=== PATIENT | female | born 1940 | race Caucasian/White ===

== ENCOUNTER → 2019-07-20 09:32 | Outpatient (CLI) | payer OTHER ==
[~2019-07-20 09:32] MED LIST: ATENOLOL25 MG PO; LISINOPRIL40 MG PO; NORVASC5 MG PO
== END | disposition home or self-care (01) ==
LOC: LAB 09:32
DX: D64.89 Other specified anemias (principal); E88.89 Other specified metabolic disorders; D68.8 Other specified coagulation defects; N39.0 Urinary tract infection, site not specified; Z22.322 Carrier or suspected carrier of Methicillin resistant Staphylococcus aureus; Z76.89 Persons encountering health services in other specified circumstances; I49.8 Other specified cardiac arrhythmias; E55.9 Vitamin D deficiency, unspecified; M85.88 Other specified disorders of bone density and structure, other site; E78.2 Mixed hyperlipidemia; M25.50 Pain in unspecified joint

== ENCOUNTER 2019-11-04 09:11 | Outpatient (CLI) | payer OTHER | END 2019-11-04 13:42 | disposition home or self-care (01) | LOC: LAB 09:11 | DX: D64.89 Other specified anemias (principal); E88.89 Other specified metabolic disorders; D68.8 Other specified coagulation defects; N39.0 Urinary tract infection, site not specified; Z22.322 Carrier or suspected carrier of Methicillin resistant Staphylococcus aureus; I10 Essential (primary) hypertension; I49.8 Other specified cardiac arrhythmias; M79.651 Pain in right thigh; M79.604 Pain in right leg ==

== ENCOUNTER 2019-11-10 12:15 | Inpatient (IN) | payer OTHER ==
[~2019-11-10] VITALS: Ht 157.5 cm; Wt 69.4 kg
[2019-11-10] MEDS ORDERED: LIPITOR40 M1 (14:06)
[2019-11-10] MEDS ORDERED: VITAMIN B-121000 MC4 PO (14:07)
[2019-11-10] MEDS ORDERED: VITAMIN D2400 UNIT PO (14:07)
[2019-11-15] MEDS ORDERED: VITAMIN C1000 MG (08:41)
[2019-11-15] MEDS ORDERED: VITAMIN E400 UNI6 (08:41)
[2019-11-15] MEDS ORDERED: MAGNESIUM250 MG (08:41)
[2019-11-15] MEDS ORDERED: VITAMIN D350 MC1 (08:41)
[2019-11-15] MEDS ORDERED: XARELTO10 M1 (08:41)
[2019-11-15] MEDS ORDERED: ATORVASTATIN CA40 MG (08:42)
[2019-11-15] MEDS ORDERED: CALCIUM 600-VI1 EAC2 (08:42)
[2019-11-15] MEDS ORDERED: NAPROXEN500 MG (08:42)
[2019-11-15] MEDS ORDERED: ADULT LOW DOSE81 M1 (08:42)
== END 2019-11-18 15:40 | disposition home or self-care (01) | DRG 470 ==
LOC: SURH 11-15 06:21 → O/R 11-15 06:21 → SURG 11-15 07:00 → SURH 11-15 14:12
PROVIDERS: ADMIT Orthopaedic Surgery
PROC: 0MNN0ZZ Release Right Knee Bursa and Ligament, Open Approach (ICD-10-PCS; 2019-11-15)
PROC: 0SRC0J9 Replacement of Right Knee Joint with Synthetic Substitute, Cemented, Open Approach (ICD-10-PCS; principal; 2019-11-15 07:00)
PROC: 30233N1 Transfusion of Nonautologous Red Blood Cells into Peripheral Vein, Percutaneous Approach (ICD-10-PCS; 2019-11-17)
DX: M17.11 Unilateral primary osteoarthritis, right knee (principal); D64.9 Anemia, unspecified; I10 Essential (primary) hypertension

== ENCOUNTER → 2020-12-08 | Outpatient (CLI) | payer OTHER ==
[~2020-12-08] MED LIST changes: +ADULT LOW DOSE81 M1; +ATORVASTATIN CA40 MG; +CALCIUM 600-VI1 EAC2; +LIPITOR40 M1; +MAGNESIUM250 MG; +NAPROXEN500 MG; +VITAMIN B-121000 MC4 PO; +VITAMIN C1000 MG; +VITAMIN D2400 UNIT PO; +VITAMIN D350 MC1; +VITAMIN E400 UNI6; +XARELTO10 M1
== END | disposition home or self-care (01) ==
LOC: LAB 09:58
PROVIDERS: ATTEND Orthopaedic Surgery
DX: E55.9 Vitamin D deficiency, unspecified (principal); E21.3 Hyperparathyroidism, unspecified; E88.89 Other specified metabolic disorders; M81.8 Other osteoporosis without current pathological fracture; M85.9 Disorder of bone density and structure, unspecified